=== PATIENT | female | born 1960 | race Caucasian/White ===

== ENCOUNTER 2018-07-09 04:39 | Emergency (ER) | payer OTHER ==
[2018-07-09] MEDS ORDERED: MAG HYDROX/AL HYDROX/SIMETH 30 ML UDC PO STA (04:55)
[2018-07-09] MEDS ORDERED: LIDOCAINE VISCOUS 2% 15 ML UDC MM STA (04:55)
--- NOTE | 2018-07-09 05:00 | ED Physician Documentation ---
PD HPI ABD PAIN - Stated complaint Stated Complaint: ABDOMINAL PAIN - Chief complaint Chief Complaint: Abd Pain - History obtained from History obtained from: Patient, Family - History of Present Illness Timing - onset: Enter time (1400), Yesterday Timing - duration: Hours Timing - details: Gradual onset, Still present, Waxing and waning Quality: Dull, Pain Location: Epigastric Radiation: Left flank, Right flank Improved by: Other (nothing) Worsened by: Other (nothing) Associated symptoms: No: Fever, Nausea, Vomiting, Hematemesis, Diarrhea, Constipation, Melena, Hematochezia, Dysuria, Hematuria, Chest pain, Dizzy, Near syncope / syncope, Loss of appetite, Weight loss Similar symptoms before: Diagnosis (gallstones.) Recently seen: Not recently seen - Additional information Additional information: 57 y/o female has traveled here from [place] to be with family for the holidays. She has developed a non-modifiable pain in the central abdomen with radiation to the back. She denies other symptoms and has 8/10 pain. The history is taken with the aid of her son-in-law who acts as residential monitor. The patient reports that she last had a problem with her gallbladder in March of this year and this resolved. She denies any specific right upper quadrant pain. She has taken about 5 days to travel here from home and she indicates she has not eaten well during the travel which included a 3 day stay in [place] to get her VISA. She indicates she did not feel well yesterday after eating and she stuck her fingers down her throat to vomit. She has not been nauseated. Review of Systems Constitutional: reports: Fatigue. denies: Fever, Chills, Myalgias Eyes: denies: Decreased vision Ears: denies: Ear pain Nose: denies: Rhinorrhea / runny nose, Congestion Throat: denies: Sore throat Cardiac: denies: Chest pain / pressure, Palpitations, Pedal edema, Calf pain Respiratory: denies: Dyspnea, Cough, Hemoptysis, Wheezing GI: reports: Abdominal Pain, Vomiting (once forced). denies: Abdominal Swelling, Nausea, Constipation, Diarrhea : denies: Dysuria, Frequency Skin: denies: Rash, Lesions, Abrasion (s) Musculoskeletal: reports: Back pain. denies: Neck pain, Extremity pain Neurologic: denies: Generalized weakness, Focal weakness, Numbness, Syncope, Seizure, Altered mental status PD PAST MEDICAL HISTORY - Allergies Allergies/Adverse Reactions: Allergies Allergy/AdvReac Type Severity Reaction Status Date / Time No Known Drug Allergies Allergy Verified 07/09/18 05:11 PD ED PE NORMAL - Vitals Vital signs reviewed: Yes (hypertensive ) - General General: No acute distress, Well developed/nourished - HEENT HEENT: Atraumatic, PERRL, EOMI - Neck Neck: Supple, no meningeal sign, No bony TTP - Cardiac Cardiac: RRR, No murmur - Respiratory Respiratory: No respiratory distress, Clear bilaterally - Abdomen Abdomen: Normal bowel sounds, Soft, Non tender, Non distended, No organomegaly - Back Back: No CVA TTP, No spinal TTP - Derm Derm: Normal color, Warm and dry, No rash - Extremities Extremities: No deformity, No edema - Neuro Neuro: Alert and oriented X 3, 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, No motor deficit, No sensory deficit, Normal speech Eye Opening: Spontaneous Motor: Obeys Commands Verbal: Oriented GCS Score: 15 - Psych Psych: Normal mood, Normal affect Results - Vitals Vitals: Vital Signs - 24 hr 07/09/18 07/09/18 07/09/18 04:46 04:53 06:25 Heart Rate 81 83 60 Respiratory 18 18 18 Rate Blood Pressure 148/91 H 148/91 H O2 Saturation 100 100 98 07/09/18 07:28 Heart Rate 82 Respiratory 20 Rate Blood Pressure 140/86 H O2 Saturation 96 Oxygen O2 Source Room air - EKG (time done) 0550 Rate: Rate (enter#) (65) QRS: LVH Ischemia: Normal ST segments Compare to prior EKG: Old EKG unavailable Computer interpretation: Agree with computer - Labs Labs: Laboratory Tests 07/09/18 07/09/18 07/09/18 05:27 05:27 05:27 WBC 10.7 RBC 4.13 L Hgb 10.7 L Hct 32.8 L MCV 79.5 L MCH 25.9 L MCHC 32.5 RDW 16.5 H Plt Count 348 MPV 7.1 L Neut # (Auto) 8.5 H Lymph # (Auto) 1.4 L [place] # (Auto) 0.8 Eos # (Auto) 0.0 Baso # (Auto) 0.1 Absolute Nucleated RBC 0.00 Nucleated RBC % 0.0 Sodium 128 L Potassium 2.0 L* Chloride 106 Carbon Dioxide 16 L Anion Gap 6.0 BUN 7 Creatinine < 0.3 L Estimated GFR (MDRD) Glucose 83 Calcium 5.8 L* Phosphorus Magnesium Total Bilirubin 0.4 AST 14 ALT 10 Alkaline Phosphatase 52 Troponin I 0.16 Total Protein 4.9 L Albumin 2.7 L Globulin 2.2 Albumin/Globulin Ratio 1.2 Lipase 24 PTH Intact Urine Color Urine Clarity Urine pH Ur Specific [place] Urine Protein Urine Glucose (UA) Urine Ketones Urine Occult Blood Urine Nitrite Urine Bilirubin Urine Urobilinogen Ur Leukocyte Esterase Ur Microscopic Review Urine Culture Comments 07/09/18 07/09/18 07/09/18 06:25 06:25 07:24 WBC RBC Hgb Hct MCV MCH MCHC RDW Plt Count MPV Neut # (Auto) Lymph # (Auto) [place] # (Auto) Eos # (Auto) Baso # (Auto) Absolute Nucleated RBC Nucleated RBC % Sodium Potassium Chloride Carbon Dioxide Anion Gap BUN Creatinine Estimated GFR (MDRD) Glucose Calcium Phosphorus 1.8 L Magnesium 1.1 L Total Bilirubin AST ALT Alkaline Phosphatase Troponin I Total Protein Albumin Globulin Albumin/Globulin Ratio Lipase PTH Intact 35 Urine Color COLORLESS Urine Clarity CLEAR Urine pH 7.0 Ur Specific [place] <=1.005 Urine Protein NEGATIVE Urine Glucose (UA) NEGATIVE Urine Ketones NEGATIVE Urine Occult Blood NEGATIVE Urine Nitrite NEGATIVE Urine Bilirubin NEGATIVE Urine Urobilinogen 0.2 (NORMAL) Ur Leukocyte Esterase NEGATIVE Ur Microscopic Review NOT INDICATED Urine Culture Comments NOT INDICATED 07/09/18 07/09/18 07:30 07:30 WBC RBC Hgb Hct MCV MCH MCHC RDW Plt Count MPV Neut # (Auto) Lymph # (Auto) [place] # (Auto) Eos # (Auto) Baso # (Auto) Absolute Nucleated RBC Nucleated RBC % Sodium 126 L Potassium 3.4 L Chloride 93 L Carbon Dioxide 23 Anion Gap 10.0 BUN 9 Creatinine 0.5 Estimated GFR (MDRD) 128 Glucose 101 H Calcium 8.5 Phosphorus Magnesium Total Bilirubin 0.4 AST 18 ALT 14 Alkaline Phosphatase 83 Troponin I 0.25 Total Protein 6.8 Albumin 3.8 Globulin 3.0 Albumin/Globulin Ratio 1.3 Lipase 24 PTH Intact Urine Color Urine Clarity Urine pH Ur Specific [place] Urine Protein Urine Glucose (UA) Urine Ketones Urine Occult Blood Urine Nitrite Urine Bilirubin Urine Urobilinogen Ur Leukocyte Esterase Ur Microscopic Review Urine Culture Comments - Rads (name of study) CT abd/pel without Radiology: Prelim report reviewed (Impression: 1. No urolithiasis seen. 2. Large calcified stone at the gallbladder neck. Inflammatory changes consistent with cholecystitis. 2. Moderate hiatal hernia.), EMP read indepedently, See rad report PD MEDICAL DECISION MAKING - ED course Complexity details: reviewed results, re-evaluated patient, considered differential, d/w patient, d/w family ED course: 57 y/o female with acute epigastric pain radiating to the back without modifiers. She is given a GI cocktail without improvement and an IV is started with a bolus of saline and toradal 30mg IV. She has improvement in her pain to a 2/10. Her laboratory work up is concerning for a markedly low Ca++ and low K+ and both of these are replaced and a second sample shows improvement in both that is not compatible with the amounts given. Her potassium went from 2.0 to 3.4 with 10mEq. and her Ca++ went from 7.6 yo 8.5 with 1 gm of calcium gluconate. I suspect the initial lab was an error. Her troponin was 0.16 and has increased to 0.25 on second draw. She indicates her mother of a heart at [place] at 55. We are attempting transfer to an appropriate facility and at shift change Dr. Le has graciously agreed to assist in arrangements for transfer. Departure - Departure Disposition: 02 Transfer Acute Care Hosp Clinical Impression: NSTEMI (non-ST elevated myocardial infarction)
[2018-07-09] MEDS ORDERED: KETOROLAC 60 MG/2 ML VIAL IVP STA (05:28)
[2018-07-09] MEDS ORDERED: SODIUM CHLORIDE 0.9% 1,000 ML IV ONE ×2 (05:28→06:01)
[2018-07-09 05:40] LABS: BASOPHILS # (AUTO) 0.1 10^3/uL (0.0-0.1); BASOPHILS % (AUTO) 0.8 %; EOSINOPHILS % (AUTO) 0.1 %; HGB - HEMOGLOBIN 10.7 g/dL (12.0-16.0); LYMPHOCYTES # (AUTO) 1.4 10^3/uL (1.5-3.5); MEAN CORPUSCULAR HEMOGLOBIN 25.9 pg (27.0-31.0); MEAN CORPUSCULAR HGB CONC 32.5 g/dL (32.0-36.0); MEAN CORPUSCULAR VOLUME 79.5 fL (81.0-99.0); MEAN PLATELET VOLUME 7.1 fL (7.9-10.8); MONOCYTES # (AUTO) 0.8 10^3/uL (0.0-1.0); NEUTROPHILS # (AUTO) 8.5 10^3/uL (1.5-6.6); NEUTROPHILS % (AUTO) 79.1 %; PLT - PLATELET COUNT 348 10^3/uL (130-450); RED BLOOD COUNT 4.13 10^6/uL (4.20-5.40); RED CELL DISTRIBUTION WIDTH 16.5 % (12.0-15.0); WHITE BLOOD COUNT 10.7 x10^3/uL (4.8-10.8)
[2018-07-09 05:56] LABS: ALBUMIN 2.7 g/dL (3.2-5.5); ALBUMIN/GLOBULIN RATIO 1.2 (1.0-2.2); ALKALINE PHOSPHATASE 52 IU/L (42-121); ALT ALANINE AMINOTRANSFERASE 10 IU/L (10-60); AST ASPARTATE AMINOTRANSFERASE 14 IU/L (10-42); BILIRUBIN,TOTAL 0.4 mg/dL (0.2-1.0); BUN - BLOOD UREA NITROGEN 7 mg/dL (6-20); CARBON DIOXIDE - CO2 16 mmol/L (21-32); CHLORIDE 106 mmol/L (101-111); GLUCOSE 83 mg/dL (70-100); LIPASE 24 U/L (22-51); SODIUM 128 mmol/L (135-145); TOTAL PROTEIN 4.9 g/dL (6.7-8.2)
[2018-07-09 05:57] LABS: CREATININE < 0.3 mg/dL (0.4-1.0)
[2018-07-09 06:00] LABS: CALCIUM 5.8 mg/dL (8.5-10.3)
[2018-07-09] MEDS ORDERED: CALCIUM GLUCONATE 1000 MG/10 ML VIAL IVP STA (06:01)
[2018-07-09] MEDS ORDERED: POTASSIUM CHLOR 10 MEQ/100 ML 10 MEQ/100 ML BAG IV ONE (06:01)
--- NOTE | 2018-07-09 06:56 | CT Report ---
Reason: R flank pain Procedure Date: 07/09/2018 Accession Number: [id number] / [id number] Procedure: CT - Abdomen/Pelvis W/O CPT Code: FULL RESULT: EXAM: CT ABDOMEN AND PELVIS (CT KUB) EXAM DATE: 07/09/2018 06:48 AM. CLINICAL HISTORY: R flank pain. COMPARISONS: None. TECHNIQUE: Routine axial helical CT imaging was performed through the abdomen and pelvis without IV contrast. Reconstructions: Coronal and sagittal. In accordance with CT protocol optimization, one or more of the following dose reduction techniques were utilized for this exam: automated exposure control, adjustment of mA and/or KV based on patient size, or use of iterative reconstructive technique. FINDINGS: Lung Bases: No focal consolidation seen. Moderate hiatal hernia. Right Kidney/Ureter: No stones, hydronephrosis, or hydroureter. No perinephric fat stranding. Left Kidney/Ureter: No stones, hydronephrosis, or hydroureter. No perinephric fat stranding. Other Solid Organs: No focal lesions are seen in the liver on this noncontrast examination. Spleen, pancreas, and adrenals show no focal abnormalities. Gallbladder/Bile Ducts: Large calcified stone is seen at the gallbladder neck. There is inflammatory change consistent with cholecystitis. Peritoneal Cavity: No bowel obstruction seen. No diverticulitis is noted. No free air or free fluid is seen. No lymphadenopathy is noted. Appendix is not seen. No evidence of appendicitis is identified. Pelvic Organs: No bladder stones or wall thickening. Noncontrast images of the visualized pelvic organs are unremarkable. Vasculature: Unremarkable. Other: Mild scoliosis. IMPRESSION: 1. No urolithiasis seen. 2. Large calcified stone at the gallbladder neck. Inflammatory changes consistent with cholecystitis. 3. Moderate hiatal hernia. RADIA
[2018-07-09 07:23] LABS: MAGNESIUM 1.1 mg/dL (1.7-2.8); PHOSPHORUS 1.8 mg/dL (2.5-4.6)
[2018-07-09 07:34] LABS: BILIRUBIN,URINE NEGATIVE (NEGATIVE); CLARITY,URINE CLEAR (CLEAR); GLUCOSE, URINE (UA) NEGATIVE (NEGATIVE); KETONES,URINE (UA) NEGATIVE (NEGATIVE); LEUKOCYTE ESTERASE, URINE NEGATIVE (NEGATIVE); NITRITE,URINE NEGATIVE (NEGATIVE); OCCULT BLOOD,URINE NEGATIVE (NEGATIVE); PROTEIN,URINE NEGATIVE (NEGATIVE); UROBILINOGEN,URINE 0.2 (NORMAL) E.U./dL (NORMAL)
[2018-07-09 07:52] LABS: BILIRUBIN,TOTAL 0.4 mg/dL (0.2-1.0); CALCIUM 8.5 mg/dL (8.5-10.3); CREATININE 0.5 mg/dL (0.4-1.0)
[2018-07-09 07:53] LABS: ALBUMIN 3.8 g/dL (3.2-5.5); ALBUMIN/GLOBULIN RATIO 1.3 (1.0-2.2); TOTAL PROTEIN 6.8 g/dL (6.7-8.2)
[2018-07-09] MEDS ORDERED: MORPHINE 10 MG/ML VIAL IVP STA (09:15)
[2018-07-09] MEDS ORDERED: PIPERACILLIN/TAZOBACTAM 4.5 GM in SODIUM CHLORIDE 0.9% MINIBAG 100 ML IV STA (09:16)
[2018-07-09] MEDS ORDERED: ASPIRIN CHEW 81 MG TABLET PO STA (09:17)
[2018-07-09] MEDS ORDERED: HEPARIN 25000UNITS/500ML (D5W) 25,000 UNIT/500 ML BAG IV STA (09:23)
--- NOTE | 2018-07-09 09:25 | ED Physician Documentation ---
ED Addendum - Addendum Addendum: 07/09/18 09:00 AM The patient's care was turned over to me by Dr. Guevara to help arrange for transfer Of the patient to a facility that could accommodate her acute findings. Dr. Guevara had thoroughly evaluated the patient. I discussed the case with the hospitalist Dr. Varela at [facility]. She has requested that we start the patient on a heparin drip, And give the patient aspirin, IV antibiotics for the possible cholecystitis and obtain blood cultures prior to antibiotics. 07/09/18 09:39 The findings and plan were discussed with the patient and her son. They understand and agree to the plan. The patient is presently stable and Appears appropriate for transfer for further workup of the acute findings
[2018-07-09 13:26] VITALS: BP 163/85
== END 2018-07-09 11:14 | disposition short-term general hospital (02) ==
LOC: ED 04:39
DX: I21.4 Non-ST elevation (NSTEMI) myocardial infarction (principal); K44.9 Diaphragmatic hernia without obstruction or gangrene; K80.20 Calculus of gallbladder without cholecystitis without obstruction; R94.31 Abnormal electrocardiogram [ECG] [EKG]
CPT/HCPCS: 36415; 74176; 80053; 81003; 83690; 83735; 83970; 84100; 84484; 85025; 87040; 93005; 96361; 96365; 96367; 96375; 99284; 99285; A9270; 81001; 83519; 87086